=== PATIENT | male | born 1945 | race Caucasian/White ===

== ENCOUNTER 2018-04-25 16:30 | Emergency (ER) | payer OTHER ==
[~2018-04-25] VITALS: Ht 177.8 cm; Wt 76.0 kg
[2018-04-25 16:44] VITALS: BP 200/129
[2018-04-25] MEDS ORDERED: LIDOCAINE-MPF 1%, 5ML ONE (16:47)
[2018-04-25] MEDS ORDERED: BUPIVACAINE 0.25% ONE (16:47)
[2018-04-25] MEDS ORDERED: LIDOCAINE-MPF 1%, 5ML INFIL ONE (17:00)
[2018-04-25] MEDS ORDERED: BUPIVACAINE 0.25% INFIL ONE (19:00)
== END 2018-04-25 18:47 | disposition home or self-care (01) ==
LOC: ED 18:10
DX: S61.310A Laceration without foreign body of right index finger with damage to nail, initial encounter (principal); S67.190A Crushing injury of right index finger, initial encounter; Z87.891 Personal history of nicotine dependence; W20.8XXA Other cause of strike by thrown, projected or falling object, initial encounter; Y93.89 Activity, other specified; Y92.098 Other place in other non-institutional residence as the place of occurrence of the external cause; Y99.8 Other external cause status
CPT/HCPCS: 11730; 12041; 99284